=== PATIENT | male | born 1985 | race Caucasian/White ===

== ENCOUNTER 2016-05-30 13:39 | Emergency (ER) | payer BC ==
[~2016-05-30 13:39] MED LIST: AMOXICILLIN 50500 MG PO; IBUPROFEN 200200 MG PO; NORCO 325 MG-51 TAB PO
[2016-05-30] MEDS ORDERED: ZYPREXA 5MG5 MG PO (15:05)
[2016-05-30] MEDS ORDERED: ZOLOFT 100MG100 MG PO (15:05)
== END 2016-05-30 15:18 | disposition home or self-care (01) ==
LOC: ED 13:39
DX: F31.9 Bipolar disorder, unspecified (principal); G47.00 Insomnia, unspecified; F17.210 Nicotine dependence, cigarettes, uncomplicated; F15.10 Other stimulant abuse, uncomplicated

== ENCOUNTER → 2021-01-18 | Outpatient (CLI) | payer BC ==
[~2021-01-18] MED LIST changes: +ZOLOFT 100MG100 MG PO; +ZYPREXA 5MG5 MG PO
== END ==
LOC: LAB 10:49
DX: U07.1 COVID-19 (principal)

== ENCOUNTER 2021-04-12 08:09 | Emergency (ER) | payer OTHER ==
[~2021-04-12] VITALS: Ht 177.8 cm; Wt 6597.0 kg
[2021-04-12 10:15] LABS: BASO # 0.02 K/mm3 (0.02-0.10); EOS # 0.01 K/mm3 (0.04-0.40); EOS % 0.1 % (0.0-4.0); HEMATOCRIT 50.9 % (42.0-52.0); HEMOGLOBIN 17.2 g/dL (13.5-18.0); LYMPH# 2.17 K/mm3 (1.50-4.00); MEAN CELL VOLUME 93 fl (78-100); MEAN CORPUSCULAR HEMOGLOBIN 31 pg (27-31); MEAN CORPUSCULAR HGB CONC 34 g/dL (33-37); MEAN PLATELET VOLUME 8.7 fl (7.4-10.4); MONO # 0.61 K/mm3 (0.20-0.80); NEU # 7.69 K/mm3 (1.40-6.50); PLATELET COUNT 283 K/mm3 (130-400); RED BLOOD COUNT 5.49 M/mm3 (4.20-5.60); RED CELL DISTRIBUTION WIDTH 12.2 % (11.5-14.5); WHITE BLOOD COUNT 10.5 K/mm3 (4.8-10.8)
[2021-04-12 10:22] LABS: ALBUMIN 4.4 g/dL (3.5-5.0); POTASSIUM 4.7 mmol/L (3.5-5.1)
[2021-04-12 10:23] LABS: CALCIUM 9.7 mg/dL (8.3-10.5)
[2021-04-12 10:25] LABS: TOTAL PROTEIN 7.7 g/dL (6.4-8.3)
[2021-04-12 10:26] LABS: TOTAL BILIRUBIN 0.6 mg/dL (0.2-1.2)
[2021-04-12] MEDS ORDERED: PANTOPRAZOLE SO40 MG PO (10:49)
[2021-04-12 11:02] VITALS: BP 106/78
== END 2021-04-12 11:00 | disposition home or self-care (01) ==
LOC: ED 08:09
PROVIDERS: Physician Assistant
DX: K21.9 Gastro-esophageal reflux disease without esophagitis (principal); K42.9 Umbilical hernia without obstruction or gangrene; F32.A Depression, unspecified; G47.00 Insomnia, unspecified; F17.210 Nicotine dependence, cigarettes, uncomplicated; Z79.899 Other long term (current) drug therapy

== ENCOUNTER → 2021-06-01 | Outpatient (CLI) | payer OTHER ==
[~2021-06-01] MED LIST changes: +PANTOPRAZOLE SO40 MG PO
== END ==
LOC: RAD 15:45
DX: M79.672 Pain in left foot (principal)

== ENCOUNTER 2021-12-20 09:44 | Emergency (ER) | payer OTHER ==
[2021-12-20 11:16] LABS: ALBUMIN 4.4 g/dL (3.5-5.0)
[2021-12-20 11:17] LABS: POTASSIUM 3.4 mmol/L (3.5-5.1); SODIUM 135 mmol/L (136-145)
[2021-12-20 11:18] LABS: CALCIUM 9.2 mg/dL (8.3-10.5)
[2021-12-20 11:19] LABS: GLUCOSE 99 mg/dL (75-110)
[2021-12-20 11:20] LABS: CARBON DIOXIDE 24 mmol/L (22-29)
[2021-12-20 11:21] LABS: TOTAL BILIRUBIN 0.6 mg/dL (0.2-1.2)
[2021-12-20 11:24] LABS: AST-SGOT 16 U/L (5-34)
[2021-12-20 11:25] LABS: ALT/SGPT 16 U/L (0-55)
[2021-12-20 11:32] LABS: TROPONIN-I < 0.030 ng/mL (<0.030)
[2021-12-20 11:33] LABS: BASO # 0.02 K/mm3 (0.02-0.10); EOS # 0.02 K/mm3 (0.04-0.40); EOS % 0.2 % (0.0-4.0); HEMATOCRIT 43.6 % (42.0-52.0); HEMOGLOBIN 14.9 g/dL (13.5-18.0); LYMPH# 2.25 K/mm3 (1.50-4.00); MEAN CELL VOLUME 89 fl (78-100); MEAN CORPUSCULAR HEMOGLOBIN 31 pg (27-31); MEAN CORPUSCULAR HGB CONC 34 g/dL (33-37); MEAN PLATELET VOLUME 9.2 fl (7.4-10.4); MONO # 0.49 K/mm3 (0.20-0.80); NEU # 5.84 K/mm3 (1.40-6.50); PLATELET COUNT 313 K/mm3 (130-400); RED BLOOD COUNT 4.89 M/mm3 (4.20-5.60); RED CELL DISTRIBUTION WIDTH 11.9 % (11.5-14.5); WHITE BLOOD COUNT 8.6 K/mm3 (4.8-10.8)
[2021-12-20 11:47] LABS: URINE APPEARANCE CLEAR; URINE BILIRUBIN NEGATIVE (NEGATIVE); URINE BLOOD NEGATIVE (NEGATIVE); URINE COLOR YELLOW; URINE GLUCOSE NEGATIVE (NEGATIVE); URINE KETONE NEGATIVE (NEGATIVE); URINE LEUKOCYTE ESTERASE NEGATIVE (NEGATIVE); URINE NITRATE NEGATIVE (NEGATIVE); URINE PROTEIN(semi-quant) NEGATIVE (NEGATIVE); URINE UROBILINOGEN NORMAL (NORMAL); URINE WBC 0-1 /hpf (0-3)
[2021-12-20 12:35] VITALS: BP 123/82
== END 2021-12-20 12:35 | disposition home or self-care (01) ==
LOC: ED 09:44
PROVIDERS: Nurse Practitioner
DX: I95.1 Orthostatic hypotension (principal); E87.6 Hypokalemia; F17.200 Nicotine dependence, unspecified, uncomplicated; Z86.16 Personal history of COVID-19; Z20.822 Contact with and (suspected) exposure to COVID-19; Z28.310 Unvaccinated for COVID-19